=== PATIENT | male | born 1970 | race Caucasian/White ===

== ENCOUNTER → 2020-12-24 11:20 | Outpatient (CLI) | payer OTHER, SELFPAY ==
--- NOTE | 2020-12-24 11:26 | XR_ITS ---
PROCEDURE: XR HAND RT MIN 3V CLINICAL INDICATION: RT HAND SWELLING COMPARISON: No exams were available for comparison FINDINGS: No fracture or dislocation. No lytic or blastic change. There is normal mineralization. There are mild osteoarthritic changes at the 1st interphalangeal joint. No bony erosive changes are evident. Other findings:None. 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
== END ==
PROVIDERS: PCP Nurse Practitioner Family; Visit Provider Nurse Practitioner Family
DX: M79.89 Other specified soft tissue disorders (principal)
CPT/HCPCS: 73130

== ENCOUNTER → 2021-04-15 12:48 | Outpatient (CLI) | payer OTHER, SELFPAY ==
--- NOTE | 2021-04-15 | XR_ITS ---
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 Both orbits appear clear with no metallic or semi opaque foreign body seen. IMPRESSION: Negative for metallic foreign body Dictated by: Dr. Micah Montes MD 04/15/2021 13:23 Dr. Micah Montes MD in [place] 04/15/2021 13:23
--- NOTE | 2021-04-15 12:51 | MR_ITS ---
PROCEDURE INFORMATION: Exam: MR Right Upper Extremity Other Than Joint Without Contrast; Hand Exam date and time: 04/15/2021 12:51 PM Age: 50 years old Clinical indication: Patient HX: PT C/O diffuse RT hand pain with edema of unknown origin. PT states ? ra. TECHNIQUE: Imaging protocol: MR of the Right upper extremity without contrast. Exam focused on the hand. COMPARISON: CR XR HAND RT MIN 3V 12/24/2020 11:41 AM FINDINGS: Bones and cartilage: There is no acute fracture or dislocation. No aggressive bone lesions are present. No inflammatory-appearing erosions are present. Joint spaces: Mild joint space narrowing involves the thumb interphalangeal joint and third metacarpophalangeal joint. Collateral ligaments of digits: Unremarkable. No evidence of tear. Flexor compartment tendons: Unremarkable. No evidence of tear. Extensor compartment tendons: Unremarkable. No evidence of tear. Muscles: Unremarkable. Soft tissues: Moderate subcutaneous edema involves the dorsal ulnar aspect of the hand. A multiloculated ganglion or synovial cyst located along the dorsal aspect of the scapholunate joint measures 0.5 x 0.5 x 0.4 cm. IMPRESSION: 1. No evidence of an inflammatory arthropathy. 2. Mild joint space narrowing of the thumb interphalangeal joint and third metacarpophalangeal joint favoring osteoarthritis. 3. Nonspecific soft tissue edema.
== END ==
PROVIDERS: PCP Nurse Practitioner Family; Visit Provider Nurse Practitioner Family
DX: M25.541 Pain in joints of right hand (principal); M79.89 Other specified soft tissue disorders; H05.53 Retained (old) foreign body following penetrating wound of bilateral orbits
CPT/HCPCS: 70200; 73218

== ENCOUNTER 2024-09-04 09:57 | Outpatient (CLI) | payer OTHER, SELFPAY ==
--- NOTE | 2024-09-04 10:01 | XR_ITS ---
FINAL REPORT CLINICAL HISTORY: SCIATICA COMPARISON: None FINDINGS: LUMBOSACRAL SPINE SERIES Five views of the lumbosacral spine were obtained. There is no fracture present. There is no malalignment. There is moderate diffuse degenerative disc disease and spondylosis. IMPRESSION: Moderate degenerative changes. Reviewed, Interpreted and Dictated by Laureano Morales MD Transcribed by Amita Chowdhury Authenticated and [facility]
== END 2024-09-04 23:59 | disposition home or self-care (01) ==
LOC: RAD 09:59
PROVIDERS: PCP Nurse Practitioner; Visit Provider Nurse Practitioner
DX: M53.9 Dorsopathy, unspecified (principal); M54.30 Sciatica, unspecified side
CPT/HCPCS: 72110

== ENCOUNTER 2024-10-09 08:00 | Outpatient (RCR) | payer OTHER, SELFPAY | END 2024-10-09 23:59 | disposition home or self-care (01) | LOC: PT 08:00 | PROVIDERS: Visit Provider Nurse Practitioner | DX: M54.50 Low back pain, unspecified (principal) | CPT/HCPCS: 97010; 97014; 97035; 97110; 97140; 97163; G0283 ==

== ENCOUNTER 2024-10-13 07:52 | Outpatient (CLI) | payer OTHER, SELFPAY ==
--- NOTE | 2024-10-13 | MR_ITS ---
FINAL REPORT CLINICAL HISTORY: lower back pain COMPARISON: None FINDINGS: Multiplanar MR imaging of the lumbar spine was performed without contrast. On the sagittal T2-weighted images, there is abnormal decreased signal at the L2-3, L3-4, and L4-5 disc levels. The vertebrae are of normal height. The vertebral alignment is normal. L1-2: There is no significant canal stenosis or neural foraminal narrowing. L2-3: Moderate diffuse disc bulge. [id number] bilateral neural foraminal narrowing. L3-4: Moderate diffuse disc bulge. Left posterolateral disc protrusion. Mild right and moderate left neural foraminal narrowing. L4-5: Large disc bulge. Bilateral facet hypertrophy. High-grade spinal canal compromise well seen on image 19 of series 5. Moderate to high-grade bilateral neural foraminal narrowing, [id number]. L5-S1: Mild disc bulge. Mild bilateral neural foraminal narrowing. IMPRESSION: Large disc bulge at L4-5 with high-grade spinal canal compromise and moderate to high-grade bilateral [id number]-right neural foraminal narrowing. Diffuse disc bulge at L3-4. Reviewed, Interpreted and Dictated by Gary Cantor MD Transcribed by Amita Chowdhury Authenticated and [facility]
--- NOTE | 2024-10-13 08:00 | XR_ITS ---
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 No fracture is identified. The sinuses are clear. No foreign body is identified. IMPRESSION: No foreign body is identified. Reviewed, Interpreted and Dictated by Gary Cantor MD Transcribed by Zuly Castellano Authenticated and [facility]
== END 2024-10-13 23:59 | disposition home or self-care (01) ==
LOC: RAD 07:53
PROVIDERS: PCP Nurse Practitioner; Visit Provider Nurse Practitioner
DX: M54.50 Low back pain, unspecified (principal); M43.00 Spondylolysis, site unspecified; R20.2 Paresthesia of skin; M51.9 Unspecified thoracic, thoracolumbar and lumbosacral intervertebral disc disorder
CPT/HCPCS: 70200; 72148